=== PATIENT | female | born 1955 | race Caucasian/White ===

== ENCOUNTER 2018-08-03 11:36 | Emergency (ER) | payer OTHER ==
[~2018-08-03] VITALS: Ht 162.6 cm; Wt 86.2 kg
[~2018-08-03 11:36] MED LIST: BUPR150ER PO; BUPR75 PO; CEPH500 PO; CHLO25B PO; CHOL10002 PO; Duoneb 2.5-0.5 M3 ML INH; IBUP800 PO; IBUPROFEN PO; K-Dur 20 meq T20 MEQ PO; K-Dur20 MEQ PO; LOSA50 PO; Norco 5-325 Ta1 EACH PO; OMEP20ER PO; PROCODE120 PO; Prednisone20 MG PO
[2018-08-03 12:08] LABS: BASOPHILS ABSOLUTE AUTO 0.04 K/mm3 (0.00-0.23); BASOPHILS PERCENT AUTO 1 % (0-2); EOSINOPHILS ABSOLUTE AUTO 0.13 K/mm3 (0.00-0.68); EOSINOPHILS PERCENT AUTO 2 % (0-6); Hematocrit 42.2 % (33.0-51.0); Hemoglobin 14.3 g/dL (11.5-16.0); IMMATURE GRAN ABSOLUTE AUTO 0.02 K/mm3 (0.00-0.10); IMMATURE GRAN PERCENT AUTO 0 % (0-1); LYMPHOCYTES ABSOLUTE AUTO 2.25 K/mm3 (0.84-5.20); LYMPHOCYTES PERCENT AUTO 33 % (21-46); MONOCYTES ABSOLUTE AUTO 0.55 K/mm3 (0.16-1.47); MONOCYTES PERCENT AUTO 8 % (4-13); Mean Corpuscular HGB 30.3 pg (26.0-34.0); Mean Corpuscular HGB Conc 33.9 g/dL (31.5-36.5); Mean Corpuscular Volume 89 fL (80-100); Mean Platelet Volume 9.9 fL (9.1-12.4); NEUTROPHILS ABSOLUTE AUTO 3.79 K/mm3 (1.96-9.15); NEUTROPHILS PERCENT AUTO 56 % (41-73); Platelet Count 315 K/mm3 (150-400); RDW Coefficient Variation 12.7 % (11.7-14.2); RDW Standard Deviation 41.8 fL (35.1-46.3); Red Blood Cell Count 4.72 M/mm3 (3.80-5.20); White Blood Cell Count 6.78 K/mm3 (4.00-11.30)
[2018-08-03 12:34] LABS: Alanine Aminotransfer (ALT/SGP 24 U/L (12-78); Albumin, Blood 4.1 g/dL (3.4-5.0); Albumin/Globulin Ratio 1.2 (0.8-1.8); Alk Phos 85 U/L (50-136); Anion Gap 9 mmol/L (6-16); Aspartate Aminotrans (AST/SGOT 16 U/L (12-37); Bilirubin, Total 0.6 mg/dL (0.1-1.0); Blood Urea Nitrogen 28 mg/dL (8-24); Bun/Creatinine Ratio 25.5 (12.0-20.0); CO2, Blood 27 mmol/L (21-32); Calcium, Blood 8.7 mg/dL (8.5-10.1); Chloride, Blood 99 mmol/L (98-108); Globulin, Blood 3.3 g/dL (2.2-4.0); Glomerular Filtration Rate 54 (60-); Glucose, Blood 90 mg/dL (70-99); Potassium, Blood 2.9 mmol/L (3.5-5.5); Sodium, Blood 135 mmol/L (136-145); Total Protein, Blood 7.4 g/dL (6.4-8.2); Troponin I <0.015 ng/mL (0.000-0.040)
[2018-08-03 15:42] LABS: Source, Urine Clean Catch
[2018-08-03 16:02] LABS: Appearance, Urine Clear (Clear); Bilirubin, Urine Neg (Neg); Blood, Urine 1+ (Neg); Color, Urine Yellow (P-Yellow); Glucose Qualitative, Urine Neg (Neg); Ketones, Urine Neg (Neg); Leukocyte Esterase, Urine Neg (Neg); Nitrite, Urine Neg (Neg); Protein, Urine Neg (Neg); Specific Gravity, Urine 1.005 (1.003-1.022); Urobilinogen, Urine NORM (Normal)
[2018-08-03 16:22] LABS: Squamous Epithelial Cells Few /hpf (Few)
[2018-08-03 16:23] LABS: Bacteria Rare /hpf; White Blood Cells, Urine 0-2 /hpf (0-5)
[2018-08-03] MEDS ORDERED: POTCHL20ER PO (16:35)
== END 2018-08-03 17:20 | disposition home or self-care (01) ==
LOC: ER 11:36
PROVIDERS: Emergency Medicine; Physician Assistant
DX: R07.89 Other chest pain (principal); E87.6 Hypokalemia; Z91.040 Latex allergy status; Z79.899 Other long term (current) drug therapy; J45.909 Unspecified asthma, uncomplicated; I10 Essential (primary) hypertension; F32.9 Major depressive disorder, single episode, unspecified; F17.200 Nicotine dependence, unspecified, uncomplicated
CPT/HCPCS: 36415; 71046; 80053; 81001; 84484; 85025; 93005; 93010; 96365; 96366; 96375; 99284-25; J1885; J3480; J7030

== ENCOUNTER 2019-04-09 09:25 | Day surgery (SDC) | payer OTHER ==
[~2019-04-09] VITALS: Ht 157.5 cm; Wt 187.6 kg
[~2019-04-09 09:25] MED LIST changes: +POTCHL20ER PO
== END 2019-04-09 11:32 | disposition home or self-care (01) ==
LOC: ORSCSDS 09:25
PROVIDERS: Internal Medicine Gastroenterology
PROC: 0DB68ZX Excision of Stomach, Via Natural or Artificial Opening Endoscopic, Diagnostic (ICD-10-PCS; principal; 2019-04-09 10:45)
PROC: 0D758ZZ Dilation of Esophagus, Via Natural or Artificial Opening Endoscopic (ICD-10-PCS; principal; 2019-04-09 10:45)
PROC: 0DB58ZX Excision of Esophagus, Via Natural or Artificial Opening Endoscopic, Diagnostic (ICD-10-PCS; principal; 2019-04-09 10:45)
DX: R13.10 Dysphagia, unspecified (principal); K29.70 Gastritis, unspecified, without bleeding; J45.909 Unspecified asthma, uncomplicated; Z87.891 Personal history of nicotine dependence; E66.9 Obesity, unspecified; Z68.32 Body mass index [BMI] 32.0-32.9, adult; Z79.899 Other long term (current) drug therapy
CPT/HCPCS: 82947; 88305; 88342; J2704; J7120